=== PATIENT | female | born 1985 | race Caucasian/White ===

== ENCOUNTER 2016-06-05 21:36 | Emergency (ER) | payer OTHER ==
[~2016-06-05 21:36] MED LIST: ALBUTEROL2.5 MG/3 M IH; CORTISPORIN EAR10 M LEFT EAR; DELTASONE10 MG PO; ELIMITE60 G1 TP; LEVAQUIN500 M1 PO; NO HOME MEDICATION XX; NORCO 5-325 TA1 EACH PO; NORCO 5/325 TAB1 TAB PO; NORCO 7.5/325 T1 TAB PO; PEN-VEE K500 MG PO; PREDNISONE20 M1 PO
[2016-06-05] MEDS ORDERED: ENBREL50 MG/1 M1 (21:58)
== END 2016-06-05 22:35 ==
LOC: EDMED 21:36
DX: S29.012A Strain of muscle and tendon of back wall of thorax, initial encounter (principal); F17.200 Nicotine dependence, unspecified, uncomplicated; V49.40XA Driver injured in collision with unspecified motor vehicles in traffic accident, initial encounter; Y92.410 Unspecified street and highway as the place of occurrence of the external cause